=== PATIENT | male | born 1985 | race Two or more races ===

== ENCOUNTER 2025-07-14 07:23 | Emergency (ER) | payer MEDICAID ==
[~2025-07-14] VITALS: Ht 170.2 cm; Wt 78.0 kg
[2025-07-14 07:26] VITALS: BP 146/98; TEMP 98.4
[2025-07-14] MEDS ORDERED: CEPH-570 PO (07:52)
[2025-07-14 08:05] VITALS: O2SAT 99
[2025-07-15] MEDS ORDERED: CLIN300C12 PO (13:18)
[2025-07-15] MEDS ORDERED: ERYT3.5O9 RIGHTEYE (13:20)
== END 2025-07-14 08:06 | disposition home or self-care (01) ==
LOC: ER 07:34
DX: L03.211 Cellulitis of face (principal)

== ENCOUNTER 2025-07-15 12:18 | Emergency (ER) | payer MEDICAID ==
[~2025-07-15] VITALS: Ht 170.2 cm; Wt 35.4 kg
[~2025-07-15 12:18] MED LIST: CEPH-570 PO
[2025-07-15 12:27] VITALS: TEMP 98.2
[2025-07-15] MEDS ORDERED: CLIN300C12 PO (13:18)
[2025-07-15] MEDS ORDERED: ERYT3.5O9 RIGHTEYE (13:20)
[2025-07-15 13:32] VITALS: BP 150/92; O2SAT 98
== END 2025-07-15 13:33 | disposition home or self-care (01) ==
LOC: ER 12:21
DX: L03.213 Periorbital cellulitis (principal)